=== PATIENT | male | born 1940 | race Caucasian/White ===

== ENCOUNTER 2018-01-15 08:04 | Observation (INO) | payer MEDICARE ==
[~2018-01-15] VITALS: Ht 188 cm; Wt 90.0 kg
[2018-01-15] VITALS (10 sets, daily range): BP systolic 94–140; BP diastolic 43–63
[~2018-01-15 08:04] MED LIST: ALLOPURINOL100 MG PO; ATENOLOL25 MG PO; AUGMENTIN875TAB OR; CIPRODEX1 ML AD; CORTISPORIN OTI10 ML AD; COUMADIN5 MG PO; FUROSEMIDE20 MG PO; GLIPIZIDE5 MG; GLYBURID MCR1.5 MG PO; GLYBURIDE5 MG PO; LIPITOR10 MG PO; LIPITOR40 M1 PO; LISINOPRIL5 MG PO; LORTAB5 OR; LOSARTAN POT50 MG PO; OMEPRAZOLE20 MG PO; ROCEPHIN 1 GM1 GM IM; ZITHROMAX500 MG PO
[2018-01-15 09:01] LABS: INTERNATIONAL NORMALIZED RATIO 1.3 RATIO (0.7-1.3); PROTHROMBIN TIME 14.8 SECONDS (9.0-12.5)
--- NOTE | 2018-01-15 11:11 | NUR ---
PT ARRIVED TO FLOOR VIA STRETCHER ACCOMPANIED BY OR STAFF MEMBERS AND SPOUSE IN STABLE CONDITION;PT TRANSFERRED TO HOSPITAL BED INDEPENDENTLY;PT ORIENTED TO ROOM AND CALL LIGHT SYSTEM AND VERBALIZES UNDERSTANDING;PT REPORTS ABDOMINAL PAIN RATING 8/10 ON THE PAIN SCALE AND REQUESTS PAIN MEDICATION,PT EDUCATED ON WAIT TIME TO PROFILE ORDERS AND VERBALIZES UNDERSTANDING;VS AND WT OBTAINED BY SAEED HAND;ASSESSMENT COMPLETED;PT ALERT AND ORIENTED X3,DROWSY; RESPIRATIONS EVEN AND UNLABORED ON RA,CLEAR LUNG SOUNDS NOTED;I.S. AT BEDSIDE AND PT EDUCATED ON USE 10X PER HOUR WHILE AWAKE,GOAL SET TO 1000;ABDOMEN SOFT ON PALPATION AND HYPOACTIVE IN ALL 4 QUADRANTS,LAST BM 01/14/18;X4 DRESSINGS NOTED TO ABDOMEN,CDI;TENDERNESS NOTED THROUGHOUT ABDOMEN;SPLINTING ENCOURAGED WITH MOVEMENT;STRONG PEDAL PULSES;SCD'S ON BLE;TELE MONITOR PLACED ON PT AT THIS TIME PER ORDER;#20G TO RIGHT WRIST INFUSING NS @ 75ML/HR,SITE APPEARS HEALTHY;ACCUCHECK OF 151 OBTAINED;ALL SAFETY PRECAUTIONS REINFORCED AND QUESTIONS ANSWERED;PT DENIES ANY OTHER CURRENT NEEDS AND IS ENCOURAGED TO CALL FOR ASSISTANCE IF NEEDED;FALL PRECAUTIONS IN PLACE WITH BED IN THE LOWEST POSITION AND CALL LIGHT IN REACH;WILL CONTINUE TO MONITOR
--- NOTE | 2018-01-15 11:50 | NUR ---
PT MEDICATED WITH MORPHINE 2MG AND ZOFRAN 4MG IVP FOR PAIN RATING 8/10 ON THE PAIN SCALE TO ABDOMEN AND NAUSEA;WILL CONTINUE TO MONITOR FOR EFFECTIVENESS
--- NOTE | 2018-01-15 13:40 | NUR ---
PT REPORTS ABDOMINAL PAIN RATING 2/10 ON THE PAIN SCALE AND REQUESTS PAIN MEDICATION STATING "I CAN FEEL MY PAIN CREEPING BACK UP";PT MEDICATED WITH LORTAB 5/325MG PO AT THIS TIME;WILL CONTINUE TO MONITOR FOR EFFECTIVENESS
--- NOTE | 2018-01-15 16:20 | NUR ---
PT RESTING IN SEMI FOWLERS POSITION WITH SPOUSE AT BEDSIDE;RESPIRATIONS EVEN AND UNLABORED ON RA;TELE MONITOR IN PLACE;PT DENIES ANY CURRENT PAIN OR NEEDS;IV SITE TO RIGHT WRIST CONTINUES TO INFUSE NS @ 75ML/HR WITH EASE;ACCUCHECK 124,NO COVERAGE NEEDED;SCDS IN PLACE;PT ENCOURAGED TO CALL FOR ASSISTANCE IF NEEDED;FALL PRECAUTIONS IN PLACE WITH CALL LIGHT IN REACH;WILL CONTINUE TO MONITOR
--- NOTE | 2018-01-15 18:14 | NUR ---
PT MEDICATED WITH PRN LORTAB 5/325MG PO FOR ABDOMINAL PAIN RATING 6/10 ON THE PAIN SCALE,WILL CONTINUE TO MONITOR FOR EFFECT
--- NOTE | 2018-01-15 19:00 | NUR ---
BEDSIDE REPORT RECEIVED FROM NAEEM HAYNES. PT SITTING UP IN BED; ALERT AND ORIENTED. C/O MILD ABDOMINAL PAIN; STATES THAT LORTAB WAS EFFECTIVE. RESPIRATIONS EVEN AND UNLABORED ON ROOM AIR. PLAN OF CARE DISCUSSED. PT ENCOURAGED TO VERBALIZE CONCERNS. STATES UNDERSTANDING. SAFETY MEASURES IN PLACE. CALL LIGHT WITHIN REACH.
--- NOTE | 2018-01-15 21:34 | NUR ---
ABDOMEN SOFT AND TENDER WITH HYPOACTIVE BS. 4 LAP SITE DRESSINGS CDI; BERONICA AND TEGADERM. DRESSING NOTED TO LEFT HEEL WITH A SCAB AND HEALING SKIN TEAR BENEATH; PHOTO PLACED IN CHART AND DRESSING REPLACED WITH TELFA AND PAPER TAPE. FEET ELELVATED ON PILLOW. HS SNACK GIVEN.
--- NOTE | 2018-01-16 | NUR ---
LORTAB GIVEN AT HS ALONG WITH SCHEDULED MOTRIN PER PT REQUEST. HE STATES THAT HIS ABDOMINAL PAIN IS TOLERABLE, BUT BECOMES SEVERE WITH MOVEMENT AND COUGHING. IS AT BEDSIDE; PT DEMONSTRATED USE. SCD'S IN PLACE. IV FLUIDS INFUSING WITHOUT DIFFICULTY; IV SITE APPEARS HEALTHY. PT OFFERED SOFT SNACK AT HS AND HE TOLERATED WELL. ONE PERSON ASSIST. NO OTHER REQUESTS OR CONCERNS AT THIS TIME. SAFETY MEASURES IN PLACE. CALL LIGHT WITHIN REACH.
--- NOTE | 2018-01-16 02:45 | NUR ---
NO VOID RECORDED SINCE ADMISSION; PT ATTEMPTED TO VOID WITHOUT SUCCESS. BLADDER SCAN REPORTS >999. 16F INDWELLING CAMPBELL CATHETER INSERTED USING STERILE TECHNIQUE WITH AN OUTPUT OF 1250ML BRANDON URINE. PT REPORTS RELIEF. HE AMBULATED AROUND ROOM. REPOSITIONED INTO BED WITH SCD'D BACK IN PLACE. LORTAB GIVEN FOR ABDOMINAL PAIN. DRESSINGS TO ABDOMEN REMAIN CDI. CALL LIGHT WITHIN REACH.
[2018-01-16 04:53] VITALS: BP 92/49
[2018-01-16 05:25] LABS: HEMATOCRIT 39.5 % (39.0-50.0); HEMOGLOBIN 13.4 g/dl (14.0-18.0); IMMATURE GRANULOCYTES 0.5 % (0.0-5.0); MEAN CELL VOLUME 90.8 fL CALC (80.0-100.0); MEAN CORPUSCULAR HGB 30.8 pG CALC (26.0-32.0); MEAN CORPUSCULAR HGB CONC 33.9 g/L CALC (32.0-36.0); NEUT# 12.26 thou/uL (1.82-7.42); RED BLOOD COUNT 4.35 mill/uL (4.70-6.10); RED CELL DISTRI WIDTH 13.2 % (11.5-15.5)
--- NOTE | 2018-01-16 07:10 | NUR ---
REPORT RECEIVED FROM WILLIERN;PT RESTING IN SEMI FOWLERS POSITION;INTRODUCED SELF TO PT AND POC DISCUSSED;RESPIRATIONS EVEN AND UNLABORED ON RA;PT DENIES ANY CURRENT PAIN OR DISCOMFORTS TO ABDOMEN,PAIN SCALE AND REPORTING EDUCATED;CAMPBELL CATHETER PATENT,DRAINING BRANDON URINE;TELE MONITOR IN PLACE;PT INSTRUCTED TO CALL FOR ASSISTANCE IF NEEDED;FALL PRECAUTIONS IN PLACE WITH BED IN THE LOWEST POSITION;CALL LIGHT IN REACH;WILL CONTINUE TO MONITOR
--- NOTE | 2018-01-16 08:40 | NUR ---
SPOKE WITH REGARDING POC;PT TO BE DISCHARGED HOME TODAY 01/16/18 WITH CAMPBELL CATHETER AND FOLLOW UP WITH PCP.
[2018-01-16 08:48] VITALS: BP 92/47
--- NOTE | 2018-01-16 08:50 | NUR ---
PT RESTING IN SEMI FOWLERS POSITION WITH SPOUSE AT BEDSIDE;UPDATED PT ON POC INCLUDING DISCHARGE PLAN,PT VERBALIZES UNDERSTANDING;VS OBTAINED AND ASSESSMENT COMPLETED;PT DENIES ANY CURRENT PAIN TO ABDOMEN,PAIN SCALE AND REPORTING RE-EDUCATED;RESPIRATIONS EVEN AND UNLABORED ON RA,CLEAR LUNG SOUNDS NOTED;I.S. AT BEDSIDE AND PT DEMONSTRATED USE,GOAL SET TO 1000;PT RE-EDUCATED ON USE 10X PER HOUR;ABDOMEN SOFT ON PALPATION AND ACTIVE IN ALL 4 QUADRANTS,TENDERNESS NOTED THROUGHOUT;DRESSINGS X4 REMAIN CDI;STRONG PEDAL PULSES,SCD'S IN PLACE;TELE MONITOR NOTED;#20G TO RIGHT WRIST PATENT,D/C FROM IV FLUIDS AT THIS TIME;PO FLUIDS ENCOURAGED;ACCUCHECK 204,PT COVERED WITH NOVOLOG SLIDING SCALE PER ORDER;DRESSING TO LEFT HEEL,CDI;PHOTOGRAPH IN CHART;PT ENCOURAGED TO CALL FOR ASSISTANCE IF NEEDED;FALL PRECAUTIONS IN PLACE WITH CALL LIGHT IN REACH;WILL CONTINUE TO MONITOR
--- NOTE | 2018-01-16 12:00 | NUR ---
PT RESTING IN SEMI FOWLERS POSITION WITH SPOUSE AT BEDSIDE;RESPIRATIONS REMAIN EVEN AND UNLABORED ON RA;TELE MONITOR IN PLACE;CAMPBELL CATHETER PATENT DRAINING CLEAR/BRANDON URINE;DRESSINGS TO ABDOMEN REMAINS CDI;ACCUCHECK 218, PT COVERED WITH 2 UNITS OF NOVOLOG PER SLIDING SCALE;PT DENIES ANY CURRENT NEEDS AND IS INSTRUCTED TO CALL FOR ASSISTANCE IF NEEDED;CALL LIGHT IN REACH;WILL CONTINUE TO MONITOR
[2018-01-16 12:40] VITALS: BP 95/48
--- NOTE | 2018-01-16 13:15 | NUR ---
ALL DISCHARGE INSTRUCTIONS PROVIDED AT THIS TIME AND PRESCRIPTIONS DISCUSSED;CAMPBELL CATHETER TO REMAIN IN PLACE FOR DISCHARGE PER ;IV SITE REMOVED WITH CATHETER INTACT;NEW DRESSING APPLIED X4 TO ABDOMEN;PT DENIES ANY ADDITIONAL NEEDS AT THIS TIME;WHEELCHAIR TO BE PROVIDED FOR DISCHARGE
--- NOTE | 2018-01-16 13:22 | NUR ---
Discharge instructions given. Patient verbalizes understanding of same. Discharged in stable condition via Wheelchair to Home with spouse. All belongings sent with pt.pt accompanied by andre ortega for discharge home in stable condition.
== END 2018-01-16 13:22 | disposition home or self-care (01) ==
LOC: ORM 08:04 → MS2 11:14
PROVIDERS: ADMIT Surgery; ATTEND Surgery
PROC: 0FT44ZZ Resection of Gallbladder, Percutaneous Endoscopic Approach (ICD-10-PCS; principal; 2018-01-15)
PROC: 0FB04ZX Excision of Liver, Percutaneous Endoscopic Approach, Diagnostic (ICD-10-PCS; 2018-01-15)
PROC: 0T9B70Z Drainage of Bladder with Drainage Device, Via Natural or Artificial Opening (ICD-10-PCS; 2018-01-16)
DX: K80.12 Calculus of gallbladder with acute and chronic cholecystitis without obstruction (principal); Q85.8 Other phakomatoses, not elsewhere classified; I10 Essential (primary) hypertension; E11.9 Type 2 diabetes mellitus without complications; K21.9 Gastro-esophageal reflux disease without esophagitis; Z79.01 Long term (current) use of anticoagulants
CPT/HCPCS: J2710

== ENCOUNTER → 2018-01-29 | Outpatient (REF) | payer MEDICARE ==
[2018-01-29 13:47] LABS: HEMATOCRIT 37.8 % (39.0-50.0); HEMOGLOBIN 12.6 g/dl (14.0-18.0); MEAN CELL VOLUME 91.1 fL CALC (80.0-100.0); MEAN CORPUSCULAR HGB 30.4 pG CALC (26.0-32.0); MEAN CORPUSCULAR HGB CONC 33.3 g/L CALC (32.0-36.0); NEUT# 19.58 thou/uL (1.82-7.42); RED BLOOD COUNT 4.15 mill/uL (4.70-6.10); RED CELL DISTRI WIDTH 13.2 % (11.5-15.5)
[2018-01-29 14:48] LABS: BILIRUBIN, TOTAL 1.1 mg/dL (0.0-1.4); CREATININE 1.6 mg/dL (0.7-1.3); POTASSIUM 4.6 mmol/l (3.5-5.1); TOTAL PROTEIN 6.1 g/dL (6.3-8.2)
[2018-01-29 14:53] LABS: ALBUMIN 2.9 g/dL (3.2-5.0)
== END | disposition home or self-care (01) ==
LOC: LAB 13:27
PROVIDERS: ATTEND Surgery
DX: R10.9 Unspecified abdominal pain (principal)

== ENCOUNTER 2018-02-05 07:05 | Day surgery (SDC) | payer MEDICARE ==
[2018-02-05 11:00] VITALS: BP 119/56
== END 2018-02-05 09:15 | disposition home or self-care (01) ==
LOC: ENDO 07:05
PROVIDERS: ATTEND Surgery
PROC: 0DC98ZZ Extirpation of Matter from Duodenum, Via Natural or Artificial Opening Endoscopic (ICD-10-PCS; principal; 2018-02-05)
DX: Z46.59 Encounter for fitting and adjustment of other gastrointestinal appliance and device (principal); K21.9 Gastro-esophageal reflux disease without esophagitis; K29.70 Gastritis, unspecified, without bleeding

== ENCOUNTER 2018-05-14 08:12 | Day surgery (SDC) | payer MEDICARE ==
[~2018-05-14] VITALS: Ht 188 cm; Wt 83.9 kg
[2018-05-14 10:32] VITALS: BP 116/54
== END 2018-05-14 10:30 | disposition home or self-care (01) ==
LOC: ENDO 08:12 → ORM 10:45
PROVIDERS: ATTEND Surgery
PROC: 0DJD8ZZ Inspection of Lower Intestinal Tract, Via Natural or Artificial Opening Endoscopic (ICD-10-PCS; principal; 2018-05-14)
DX: K59.00 Constipation, unspecified (principal); K57.31 Diverticulosis of large intestine without perforation or abscess with bleeding; I10 Essential (primary) hypertension; E11.9 Type 2 diabetes mellitus without complications; K21.9 Gastro-esophageal reflux disease without esophagitis